=== PATIENT | female | born 1945 | race Caucasian/White ===

== ENCOUNTER 2021-05-25 16:35 | Emergency (ER) | payer MEDICARE, BC ==
[~2021-05-25 16:35] MED LIST: Iopamidol 370 76% 100 ML VIAL ONE
[2021-05-25 17:14] LABS: #Lymphocytes 0.9 thou/uL (1.20-3.40); #Monocytes 0.7 thou/uL (0.11-0.59); #Neutrophils 11.9 thou/uL (1.40-6.50); %Basophils 0.2 % (0.0-1.0); %Eosinophils 0.2 % (0.0-10.0); %Lymphocytes 6.9 % (21.0-51.0); %Monocytes 4.9 % (0.0-10.0); %Neutrophils 87.7 % (42.0-75.0); Hemoglobin 13.5 g/dL (12.0-16.0); Mean Corpuscular HGB CONC 32.9 g/dL (32.0-36.0); Mean Corpuscular Hemoglobin 29.6 pg (27.0-31.0); Mean Corpuscular Volume 89.9 fL (78.0-98.0); Mean Platelet Volume 8.9 fL (7.4-10.4); Platelet Count 156 thou/uL (130-400); Red Blood Cell (RBC) Count 4.56 mill/uL (4.20-5.40); White Blood Cell (WBC) Count 13.6 thou/uL (4.8-10.8)
[2021-05-25 17:21] LABS: ALT (SGPT) 58 U/L (8-55); AST (SGOT) 49 U/L (5-34); Albumin 3.3 g/dL (3.4-4.8); Alkaline Phosphatase 70 U/L (40-110); Anion Gap 15 mmol/L (10-20); BUN (Urea Nitrogen) 21 mg/dL (9.8-20.1); Bilirubin, Total 0.7 mg/dL (0.2-1.2); CRP (Inflammatory) 16.91 mg/dL (= or < 0.5); Calc. Creatinine Clearance 0 mL/min (70-130); Calcium 9.6 mg/dL (7.8-10.44); Carbon Dioxide 25 mmol/L (23-31); Chloride 101 mmol/L (98-107); Glucose 138 mg/dL (83-110); Protein, Total 7.3 g/dL (5.8-8.1); Sodium 137 mmol/L (136-145)
[2021-05-25] MEDS ORDERED: Cefepime 2 GM VIAL ONE (17:22)
[2021-05-25] MEDS ORDERED: Acetaminophen 500 MG TAB ONE (17:22)
[2021-05-25 18:06] LABS: SARS-CoV-2 NAA Rapid Test Not Detected (NotDetected)
[2021-05-25] MEDS ORDERED: methylPREDNISolone Acetate 40 mg/ml Vial ONE (19:01)
[2021-05-25] MEDS ORDERED: Aspirin 325 MG TAB ONE (19:17)
[2021-05-25] MEDS ORDERED: Aspirin Chewable 81 MG TAB ONE (19:17)
[2021-05-25 19:39] LABS: INR-International Normal Ratio 1.3; PTT 36.6 sec (22.9-36.1); Prothrombin Time 15.9 sec (12.0-14.7)
== END 2021-05-25 20:34 | disposition short-term general hospital (02) ==
LOC: BURERS 16:35
DX: A41.9 Sepsis, unspecified organism (principal); J18.9 Pneumonia, unspecified organism; Z20.822 Contact with and (suspected) exposure to COVID-19
CPT/HCPCS: 36415; 71045; 71275; 80053; 83605; 83735; 83880; 84484; 85025; 85379; 85610; 85730; 86140; 87040; 93005; 96365; 96375; J0692; J2920; J3370; J7620; Q9967; U0002

== ENCOUNTER 2021-08-26 09:51 | Emergency (ER) | payer MEDICARE, BC | END 2021-08-26 12:00 | disposition home or self-care (01) | LOC: BURERS 09:51 | DX: J95.00 Unspecified tracheostomy complication (principal) | CPT/HCPCS: 99283 ==